=== PATIENT | female | born 1985 | race African-American/Black ===

== ENCOUNTER 2020-10-18 23:38 | Emergency (ER) | payer SELFPAY ==
[~2020-10-18] VITALS: Ht 165.1 cm; Wt 106.6 kg
== END 2020-10-19 00:45 | disposition home or self-care (01) ==
LOC: ER 10-19 00:06
DX: R07.89 Other chest pain (principal); Y04.8XXA Assault by other bodily force, initial encounter
CPT/HCPCS: 71101; 99283